=== PATIENT | female | born 1965 | race Asian ===

== ENCOUNTER 2020-02-20 17:26 | Emergency (ER) | payer MEDICAID ==
[~2020-02-20] VITALS: Ht 154.9 cm; Wt 52.2 kg
[2020-02-20 18:21] VITALS: BP 127/101
--- NOTE | 2020-02-20 18:34 | NUR ---
55 Y/O FEMALE FROM HOME C/O RT HAND/WRIST PAIN S/P FALL 5 DAYS AGO. NOTICABLE SWELLING AND BRUSING TO RT HAND. 6/10 THROBBING PAIN. +CMS, +PULSES. SKIN WARM, DRY, AND INTACT. VSS. MEDHX: HTN
--- NOTE | 2020-02-20 19:40 | NUR ---
LONG FINGER SPLINT APPLIED TO PT R 3RD FIGNER, WRAPPED WITH RAMANA WRAP. +CAP REFILL
[2020-02-20 20:02] VITALS: BP 127/101
--- NOTE | 2020-02-20 20:02 | NUR ---
Patient discharged with v/s stable. Written and verbal after care instructions given and explained. Patient verbalized understanding. Ambulatory with steady gait. All questions addressed prior to discharge. Advised to follow up with PMD.
== END 2020-02-20 20:02 | disposition home or self-care (01) ==
LOC: MED 17:26
DX: S63.612A Unspecified sprain of right middle finger, initial encounter (principal); I10 Essential (primary) hypertension; W19.XXXA Unspecified fall, initial encounter; Y93.89 Activity, other specified; Y92.89 Other specified places as the place of occurrence of the external cause; Y99.8 Other external cause status
CPT/HCPCS: 73130; 99283